=== PATIENT | female | born 1980 | race American Indian/Alaskan Native ===

== ENCOUNTER 2019-02-08 18:38 | Emergency (ER) | payer OTHER ==
--- NOTE | 2019-02-08 18:58 | Emergency Department Report ---
Blank Doc - Documentation Documentation: 38-year-old female that presents with dizziness, migraine headaches, and SOB. This initial assessment/diagnostic orders/clinical plan/treatment(s) is/are subject to change based on patient's health status, clinical progression and re- assessment by fellow clinical providers in the ED. Further treatment and workup at subsequent clinical providers discretion. Patient/guardians urged not to elope from the ED as their condition may be serious if not clinically assessed and managed. Initial orders include: 1- Patient sent to [facility] for further evaluation and treatment 2- labs 3- EKG 4- CXR
[2019-02-08 18:59] VITALS: BP 146/99
[2019-02-08 19:45] LABS: Basophils % (Auto) 0.7 % (0.0-1.8); Eosinophils # (Auto) 0.1 K/mm3 (0.0-0.4); Eosinophils % (Auto) 2.1 % (0.0-4.3); Hematocrit 35.5 % (30.3-42.9); Hemoglobin 11.3 gm/dl (10.1-14.3); Lymphocytes # (Auto) 1.6 K/mm3 (1.2-5.4); Lymphocytes % (Auto) 46.2 % (13.4-35.0); Mean Corpuscular HGB Conc 32 % (30-34); Mean Corpuscular Volume 93 fl (79-97); Monocytes # (Auto) 0.2 K/mm3 (0.0-0.8); Platelet Count 263 K/mm3 (140-440); Red Blood Count 3.81 M/mm3 (3.65-5.03); Red Cell Distribution Width 15.6 % (13.2-15.2)
[2019-02-08 20:33] LABS: BUN/Creatinine Ratio 9; Blood Urea Nitrogen 6 mg/dL (7-17); Calcium 9.1 mg/dL (8.4-10.2); Hemolysis Index 76
== END 2019-02-08 23:15 | disposition left against medical advice (07) ==
LOC: ED 18:38
DX: R42 Dizziness and giddiness (principal); R51 Headache; Z53.21 Procedure and treatment not carried out due to patient leaving prior to being seen by health care provider
CPT/HCPCS: 36415; 80048; 85025; 93005; 93010

== ENCOUNTER 2020-10-04 15:16 | Emergency (ER) | payer MEDICAID ==
[2020-10-04] MEDS ORDERED: ZIPRASIDONE MESYLATE 20 MG VIAL IM ONE (15:37)
--- NOTE | 2020-10-04 15:43 | Emergency Department Report ---
ED Psych HPI - General Stated Complaint: MH Time Seen by Provider: 10/04/20 15:37 Source: EMS - History of Present Illness Initial Comments: Patient is 40 years old female with history of bipolar disorder. Patient brought to the emergency room via EMS from home for mental health evaluation. Family called crisis center for patient being delusional and having a tactile hallucination. Patient was in the bathroom telling the family that he is trying to wash out the bugs on his skin. Family stated that she did not sleep for the last 3 days. Patient was aggressive with EMS and police have to be called for backup. Upon arrival to the ER patient is very loud and inappropriate. She picking up on her skin aggressively. Patient is in obvious acute psychosis. Geodon 20 mg IM ordered. Complaint: altered mental status -: days(s) Associated Psychiatric Symptoms: visual hallucinations, delusions, other (Tactile hallucination.) Quality: constant Treatments Prior to Arrival: placed on mental he - Related Data Home Medications Medication Instructions Recorded Confirmed Last Taken Dextroamphetamine/Amphetamine 30 mg PO BID 10/04/20 10/04/20 Unknown [Adderall] Sertraline [Zoloft] 50 mg PO QDAY 10/04/20 10/04/20 Unknown Allergies Allergy/AdvReac Type Severity Reaction Status Date / Time No Known Allergies Allergy Verified 10/04/20 15:37 ED Review of Systems ROS: Stated complaint: MH Other details as noted in HPI Comment: All other systems reviewed and negative Constitutional: denies: chills, fever Respiratory: denies: cough, shortness of breath Cardiovascular: denies: chest pain Gastrointestinal: denies: abdominal pain, nausea ED Past Medical Hx - Past Medical History Hx Arthritis: Yes Hx Headaches / Migraines: Yes - Surgical History Additional Surgical History: R. Knee surg.GASTRIC BYPASS - Social History Smoking Status: Current Every Day Smoker Substance Use Type: Alcohol - Medications Home Medications: Home Medications Medication Instructions Recorded Confirmed Last Taken Type Dextroamphetamine/Amphetamine 30 mg PO BID 10/04/20 10/04/20 Unknown History [Adderall] Sertraline [Zoloft] 50 mg PO QDAY 10/04/20 10/04/20 Unknown History ED Physical Exam - General General appearance: alert, anxious, other (AGITATED) - Head Head exam: Present: atraumatic, normal inspection - ENT ENT exam: Present: normal exam, normal orophraynx, mucous membranes moist - Neck Neck exam: Present: normal inspection - Respiratory Respiratory exam: Present: normal lung sounds bilaterally - Cardiovascular Cardiovascular Exam: Present: regular rate, normal rhythm, normal heart sounds - GI/Abdominal GI/Abdominal exam: Present: soft, normal bowel sounds. Absent: distended, tenderness, guarding, rebound, rigid, organomegaly, mass, bruit, pulsatile mass, hernia - Neurological Exam Neurological exam: Present: alert - Psychiatric Psychiatric exam: Present: agitated, anxious, manic - Skin Skin exam: Present: abrasion ED Course Vital Signs 10/04/20 10/04/20 10/04/20 15:34 15:47 19:25 Temperature 99 F 97.9 F Pulse Rate 89 70 Respiratory 20 20 Rate Blood Pressure 135/90 Blood Pressure 127/85 [Right] O2 Sat by Pulse 100 95 Oximetry 10/05/20 01:01 Temperature 97.2 F L Pulse Rate 70 Respiratory 20 Rate Blood Pressure Blood Pressure 112/72 [Right] O2 Sat by Pulse 99 Oximetry ED Medical Decision Making - Lab Data Result diagrams: 10/04/20 16:04 10/04/20 16:04 - Medical Decision Making Patient is 40 years old female with history of bipolar disorder. Patient broug ht to the emergency room via EMS from home for mental health evaluation. Family called crisis center for patient being delusional and having a tactile hallucination. Patient was in the bathroom telling the family that he is trying to wash out the bugs on his skin. Family stated that she did not sleep for the last 3 days. Patient was aggressive with EMS and police have to be called for backup. Upon arrival to the ER patient is very loud and inappropriate. She picking up on her skin aggressively. Patient is in obvious acute psychosis. Geodon 20 mg IM ordered. Labs reviewed and is unremarkable except for methamphetamine and the UDS. Patient evaluated by our psychiatric team and advised inpatient psychiatric admission. Critical care attestation.: If time is entered above; I have spent that time in minutes in the direct care of this critically ill patient, excluding procedure time. ED Disposition Clinical Impression: Acute psychosis, Methamphetamine abuse Disposition: [id number] PS[facility] HOSP/PSY UNIT Is pt being admited?: No Condition: Stable Referrals: PRIMARY CARE, [Primary Care Provider] - 3-5 Days
[2020-10-04] MEDS ORDERED: WATER FOR INJ Sterile (PF) 10 ML ONE (15:45)
[2020-10-04 16:26] LABS: Basophils % (Auto) 0.9 % (0.0-1.8); Eosinophils # (Auto) 0.1 K/mm3 (0.0-0.4); Eosinophils % (Auto) 2.4 % (0.0-4.3); Hematocrit 36.8 % (30.3-42.9); Hemoglobin 12.2 gm/dl (10.1-14.3); Lymphocytes # (Auto) 1.5 K/mm3 (1.2-5.4); Lymphocytes % (Auto) 34.2 % (13.4-35.0); Mean Corpuscular HGB Conc 33 % (30-34); Mean Corpuscular Volume 94 fl (79-97); Monocytes # (Auto) 0.2 K/mm3 (0.0-0.8); Monocytes % (Auto) 5.3 % (0.0-7.3); Platelet Count 294 K/mm3 (140-440); Red Blood Count 3.94 M/mm3 (3.65-5.03); Red Cell Distribution Width 12.8 % (13.2-15.2)
[2020-10-04 16:44] LABS: Blood Urea Nitrogen 14 mg/dL (7-17); Calcium 9.5 mg/dL (8.4-10.2); Hemolysis Index 16
[2020-10-04 16:46] LABS: BUN/Creatinine Ratio 20
[2020-10-04 20:04] LABS: Bacteria,Urine 1+ /HPF (Negative); Bilirubin,Urine NEG (Negative); Blood,Urine LG (Negative); Color,Urine Yellow (Yellow); Mucus,Urine FEW /HPF; Urobilinogen,Urine < 2.0 mg/dL (<2.0)
[2020-10-04 20:05] LABS: Amphetamine Screen,Urine PRESUMPTIVE POSITIVE; Benzodiazepines Screen,Urine PRESUMPTIVE NEGATIVE; Cannabinoid Screen,Urine PRESUMPTIVE NEGATIVE; Cocaine Screen,Urine PRESUMPTIVE NEGATIVE; Methadone Screen,Urine PRESUMPTIVE NEGATIVE; Opiate Screen,Urine PRESUMPTIVE NEGATIVE
[2020-10-05 02:02] VITALS: BP 112/72
== END 2020-10-05 06:40 ==
LOC: ED 15:16 → EEVIPCON 15:16 → ED 10-05 06:40
DX: F23 Brief psychotic disorder (principal); F15.10 Other stimulant abuse, uncomplicated; M19.91 Primary osteoarthritis, unspecified site; G43.909 Migraine, unspecified, not intractable, without status migrainosus; F17.200 Nicotine dependence, unspecified, uncomplicated; Z98.890 Other specified postprocedural states; Z79.899 Other long term (current) drug therapy
CPT/HCPCS: 36415; 80048; 80307; 81001; 84703; 85025; 96372; 99285; J3486; 80320; G0480